=== PATIENT | male | born 1955 | race Caucasian/White ===

== ENCOUNTER 2023-04-23 08:22 | Day surgery (SDC) | payer MEDICARE, OTHER, SELFPAY ==
[2023-04-23] VITALS (13 sets, daily range): BP systolic 106–139; BP diastolic 73–90; BMI 29.1
--- NOTE | 2023-04-23 11:44 | ITS.CL.CATH ---
Telecommunication Tower Technician - Catheterization
Cardiac Catheterization
Procedure Report:
CARDIAC CATHETERIZATION REPORT
Date of Procedure: 04/23/2023
Referring: Burak Damico MD
Indication: Chest pain
HEMODYNAMIC DATA
AO: 148/87
LV: 148/16
LEFT VENTRICULOGRAPHY: Normal segmental wall motion with EF 67%
ASCENDING AORTOGRAPHY: Ascending aortography shows a bicuspid aortic valve with trace aortic insufficiency. There is significant dilation of the aortic root. There is evidence of prior ascending aortic sleeve placement
CORONARY ANGIOGRAPHY
Dominance: Right
Left Main: Normal
LAD: Mild luminal irregularities in the LAD proper with 30% focal stenosis in the distal LAD. D1 is small. D2 is a large bifurcating vessel with tandem 70% ostial and proximal lesions in the larger daughter branch.
Circumflex: Normal
RCA: Large dominant vessel with mild luminal irregularities. The RCA terminates with a large PDA and a very large posterolateral system. The takeoff of the RCA appears to be a low anterior takeoff and an AL-1 catheter was needed for engagement
Closure Device: None-the procedure was performed via the right radial artery. The Wili's test was normal prior to the procedure.
Radiation (mGy): 433
DAP (cm2.Gy): 48.9
Fluoroscopy time: 6.7 minutes
CONCLUSIONS
1: Systemic hypertension
2: Normal left ventricular wall motion with EF 67%
3. Bicuspid aortic valve with trace aortic insufficiency
4. Significant dilation of the aortic root
5. Angiographic evidence of prior ascending aortic repair
6. Single-vessel branch CAD as described-recommend medical therapy
7. Aneurysmal dilation of the aortic root. The aortic root may require surgical repair (Bentall procedure) depending on the size. He will have a chest CTA scheduled with results to Dr. Damico. I have asked the patient to avoid exercise until
these results are known to Dr. Damico and he has been seen in the office to discuss the results
Copy to: Burak Damico MD, Ministerio Rome MD
Xiang Sousa MD, FAC, [facility]
[2023-04-23] MEDS: NSS 1000 IV ×2 (14:55→14:57)
== END 2023-04-23 14:35 | disposition home or self-care (01) ==
LOC: CATH 08:22
PROVIDERS: ATTENDING PHYSICIAN Internal Medicine Cardiovascular Disease
DX: Q23.1 Congenital insufficiency of aortic valve (principal); I10 Essential (primary) hypertension; I77.810 Thoracic aortic ectasia; I71.22 Aneurysm of the aortic arch, without rupture; I25.10 Atherosclerotic heart disease of native coronary artery without angina pectoris; Z79.82 Long term (current) use of aspirin; Z79.02 Long term (current) use of antithrombotics/antiplatelets
CPT/HCPCS: 93458; 93567; C1894; Q9967

== ENCOUNTER → 2023-05-03 09:39 | Outpatient (REF) | payer MEDICARE, OTHER, SELFPAY | LOC: RAD 09:39 | PROVIDERS: ATTENDING PHYSICIAN Internal Medicine Cardiovascular Disease; FAMILY PHYSICIAN Internal Medicine; REFERRING PHYSICIAN Internal Medicine Cardiovascular Disease | DX: I77.810 Thoracic aortic ectasia (principal) | CPT/HCPCS: 71275; Q9967 ==

== ENCOUNTER 2024-07-01 05:58 | Day surgery (SDC) | payer MEDICARE, OTHER, SELFPAY ==
[2024-07-01] VITALS (12 sets, daily range): BP systolic 121–152; BP diastolic 84–95; BMI 28.0
--- NOTE | 2024-07-01 09:27 | ITS.CL.ABL ---
[employer] Processing Supervisor - Ablation
Ablation
Procedure Report:
ELECTROPHYSIOLOGY ABLATION REPORT
Date of Procedure: July 01, 2024
Referring: Dr. Burak Damico
INDICATION: The patient has documented short RP tachycardia narrow complex
HISTORY: History of emergency aortic root dissection repair in [facility] which she survived without significant sequela but recently has developed short RP tachycardia
PROCEDURE:
Baseline intracardiac measurements were obtained in sinus rhythm. HRA, HIS, RVA and CS catheters were placed. 3D mapping with [employer] mapping system was utilized
Atrial decremental extrastimuli were delivered from the HRA and the CS. Single and double extrastimuli as well as burst pacing were performed from both sites in both the baseline state. Atrial and AVN antegrade ERP's were determined. Antegrade as
well as retrograde AVN [place] CL's were determined.
MEASUREMENTS:
BASELINE
A-A: 800 ms
P-P: 800 ms
A-H: 88 ms ms
H-V 52 ms
P-R: 174 ms at baseline and 164 ms post ablation
QRS: 80 ms
QT: 380 ms
SNRT: Normal at 600 ms
AVN Wenckebach: 440 ms preablation and 520 ms post ablation but the patient was under sedation
AVN Fast Pathway ERP: 600�340 ms
AVN Slow Pathway ERP: 600�320 ms
HIS-Purkinje System: Normal; no distal block
Retrograde Conduction Decremental, Retrograde Block 410 ms. There was no evidence for antegrade or retrograde preexcitation
Evidence for typical AV Vivi Reentry as the tachycardia included included: (1) during AV vivi echo beats the VA time was 0 ms and retrograde activation was midline and concentric, (2) ventricular pacing from the RVA showed earliest retrograde
atrial activation at the fast pathway position along the decapolar CS catheter, matching that seen during AV vivi echo beats, (3) Atrial activation during SVT began within the first 10 ms of the QRS complex, (4) Initiation of AV vivi echo beats
was dependent on critical AH interval delay i.e. slow pathway engagement, (5) ventricular pacing at 400 ms demonstrated retrograde activation time of 100 ms and compared to tachycardia with the VA time of 0 ms the VA time during AV vivi echo beat
minus the VA time during ventricular pacing was -100 ms further reinforcing and AV vivi mechanism for the nonsustained arrhythmia
SVT could not be induced but we could induce nonsustained AV vivi reentry at 1.5 beats along with ruling out any anterograde or retrograde preexcitation and the patient was also noninducible for atrial tachycardia.
SVT could be terminated by spontaneous termination. Given the patient's rapid clinical tachycardia which is short RP and reproducible AV vivi echo beats with 1.5 spins reproducibly with an AH jump precedent to the AV vivi echo beats I elected to
modify the slow pathway as we had ruled out anterograde or retrograde preexcitation and the patient was noninducible with aggressive atrial stimulation for multiple sites for atrial tachycardia.
Radiofrequency Catheter Ablation:
Following determination of the SVT mechanism, baseline conditions were resumed.
RF applications were delivered during ventricular pacing using a temperature controlled system. A steerable sheath was utilized. The anatomy was extremely tortuous with an extremely enlarged right atrium and utilizing a large curve radiofrequency
catheter plus the Agilis sheath stability still was an issue and best ability was on the ventricular side of the slow pathway. RF application resulted in nearly immediate junctional beats and a total of 3 minutes of radiofrequency energy was given.
After radiofrequency ablation in these regions the patient no longer had evidence for AV vivi echo beats. The AV ratio was 1:5 and it was extremely difficult to seat the catheter with the aid of a steerable sheath at the slow pathway. A 4 mm tip
RF catheter was used with the maximum power set to 50 W and the maximum temperature set to 52 degrees C.
After a 20 minute waiting period, stimulation was repeated. Midline retrograde activation was preserved during RV apical stimulation.
No sustained SVT was induced, a marked contrast to the pre-ablation situation.
COMPLICATIONS: None
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 The patient was noninducible for other mechanism of tachycardia and there was no evidence for antegrade or retrograde preexcitation. Anatomy was
extremely tortuous likely from prior emergency aortic repair and required a large curve ablation catheter +10 [place] steerable sheath.
RECOMMENDATIONS:
1. Continue bisoprolol
2. Cut [id number] stitch in 4 hours and ambulate in 4 hours.
Copy: Dr. Burak Damico
--- NOTE | 2024-07-01 14:15 | W.PN.UPDATE ---
Update Note
Progress Note Update
Pt seen post AVNRT ablation. Bilat groin sites without ht/bleeding, oob ambulating, urinating without difficulty. Post EKG SB 50s w/lateral TWI as before, no acute changes. Resume all meds as before. Followup with Dr. Damico as scheduled. Home later
today if groin sites/tele remain stable.
== END 2024-07-01 14:11 | disposition home or self-care (01) ==
LOC: CATH 05:58
PROVIDERS: ATTENDING PHYSICIAN Internal Medicine Cardiovascular Disease; FAMILY PHYSICIAN Family Medicine; OTHER PHYSICIAN Internal Medicine Cardiovascular Disease
DX: I47.10 Supraventricular tachycardia, unspecified (principal); I10 Essential (primary) hypertension; Z86.711 Personal history of pulmonary embolism; Q25.43 Congenital aneurysm of aorta; I08.2 Rheumatic disorders of both aortic and tricuspid valves; Z79.82 Long term (current) use of aspirin
CPT/HCPCS: C1730; C1894; C1733; C1766; 85347; 93005; 93653